=== PATIENT | male | born 1960 | race Caucasian/White ===

== ENCOUNTER 2019-11-05 18:31 | Inpatient (IN) | payer BC, SELFPAY ==
[~2019-11-05] VITALS: Ht 165.1 cm; Wt 87.3 kg
[2019-11-05] MEDS ORDERED: IV NORMAL SALINE 1000ML BAG 1,000 ML IV ONE ×2 (19:00→20:00)
[2019-11-05] MEDS ORDERED: UNABLE MC (19:18)
[2019-11-05 19:24] LABS: BASO # 0.1 x10^3/uL (0.0-0.2); BASO % 1 % (0-3); EOS # 0.2 x10^3/uL (0.0-0.7); EOS % 3 % (0-3); HEMATOCRIT 49.1 % (39.0-53.0); HEMOGLOBIN 16.6 g/dL (13.0-17.5); LYMPH # 2.1 x10^3/uL (1.0-4.8); LYMPH % 30 % (24-48); MEAN CORPUSCULAR HEMOGLOBIN 31 pg (25-35); MEAN CORPUSCULAR HGB CONC 34 g/dL (31-37); MEAN CORPUSCULAR VOLUME 93 fL (79-100); MONO # 0.7 x10^3/uL (0.0-1.1); MONO % 9 % (0-9); NEUT # 3.9 x10^3/uL (1.8-7.7); NEUT % 57 % (31-73); PLATELET COUNT 263 x10^3/uL (140-400); RED CELL DISTRIBUTION WIDTH 13.8 % (11.5-14.5); WHITE BLOOD COUNT 6.9 x10^3/uL (4.0-11.0)
[2019-11-05 19:36] LABS: CALCIUM 8.9 mg/dL (8.5-10.1); CREATININE 1.6 mg/dL (0.7-1.3); GFR 44.3; POTASSIUM 4.6 mmol/L (3.5-5.1)
[2019-11-05 19:38] LABS: ALBUMIN 3.2 g/dL (3.4-5.0); ALBUMIN/GLOBULIN RATIO 0.8 (1.0-1.7); TOTAL BILIRUBIN 0.7 mg/dL (0.2-1.0); TOTAL PROTEIN 7.3 g/dL (6.4-8.2)
[2019-11-05 19:49] LABS: BILIRUBIN,URINE NEGATIVE (NEG); CLARITY,URINE CLEAR; COLOR,URINE YELLOW; NITRITE,URINE NEGATIVE (NEG); PH,URINE 5.5 (<5.0-8.0); PROTEIN,URINE NEGATIVE (NEG-TRACE); UROBILINOGEN,URINE 0.2 mg/dL (0.2 mg/dL)
[2019-11-05 19:50] LABS: BASE EXCESS ABG -4 mmol/L (-3-3); HCO3 ABG 20 mmol/L (21-28); PCO2 ABG 37 mmHg (35-46); PO2 ABG 79 mmHg (65-108); SAT O2 ABG 95 % (92-99)
[2019-11-05 19:52] LABS: FIO2 ABG 21
--- NOTE | 2019-11-05 19:53 | PHYS DOC ---
Past Medical History Past Medical History: CAD, Diabetes-Type II, High Cholesterol Additional Past Medical Histor: "gangrene of left foot" Past Surgical History: Other Additional Past Surgical Histo: cabg Smoking Status: Current Every Day Smoker Alcohol Use: Occasionally General Adult EDM: Chief Complaint: BLOOD SUGAR PROBLEM HPI: HPI: Patient is a 58 year old with a past medical history of coronary artery disease status post CABG diabetes insulin-dependent hypertension hyperlipidemia presents with a chief complaint of blood sugar greater than 600. Patient states he has not taken his insulin for the last 2 days. Patient has associated increased thirst increased urination shortness of breath. He denies any chest pain. Patient recently moved from [place]. Review of Systems: Review of Systems: Constitutional: Denies fever or chills. [] Eyes: Denies change in visual acuity. [] HENT: Denies nasal congestion or sore throat. [] Respiratory: Denies cough positive shortness of breath. [] Cardiovascular: Denies chest pain or edema. [] GI: Denies abdominal pain, nausea, vomiting, bloody stools or diarrhea. [] : Denies dysuria. [Positive polyuria] Musculoskeletal: Denies back pain or joint pain. [] Integument: Denies rash. [] Neurologic: Denies headache, focal weakness or sensory changes. [] Lymphatic: Denies swollen glands. [] Psychiatric: Denies depression or anxiety. [] Heart Score: Risk Factors: Risk Factors: DM, Current or recent (<one month) smoker, HTN, HLP, family history of CAD, obesity. Risk Scores: Score 0 - 3: 2.5% MACE over next 6 weeks - Discharge Home Score 4 - 6: 20.3% MACE over next 6 weeks - Admit for Clinical Observation Score 7 - 10: 72.7% MACE over next 6 weeks - Early Invasive Strategies Current Medications: Current Medications Medications (Trade) Dose Ordered Sig/Kaity Start Time Stop Time Status Last Admin Dose Admin Sodium Chloride 1,000 ml @ 1,000 mls/hr 1X ONCE 11/05/19 19:00 11/05/19 19:59 11/05/19 19:33 1,000 MLS/HR Allergies: Allergies: Allergies Coded Allergies Type Severity Reaction Last Updated Verified No Known Drug Allergies 11/05/19 No Physical Exam: PE: Constitutional: Well developed, well nourished, no acute distress, non-toxic appearance. [] HENT: Normocephalic, atraumatic, bilateral external ears normal, oropharynx moist, no oral exudates, nose normal. [] Eyes: PERRLA, EOMI, conjunctiva normal, no discharge. [] Neck: Normal range of motion, no tenderness, supple, no stridor. [] Cardiovascular:Heart rate regular rhythm, no murmur [] Lungs & Thorax: Bilateral breath sounds clear to auscultation [] Abdomen: Bowel sounds normal, soft, no tenderness, no masses, no pulsatile masses. [] Skin: Warm, dry, no erythema, no rash. [] Back: No tenderness, no CVA tenderness. [] Extremities: No tenderness, no cyanosis, no clubbing, ROM intact, no edema. [] Neurologic: Alert and oriented X 3, normal motor function, normal sensory func tion, no focal deficits noted. [] Psychologic: Affect normal, judgement normal, mood normal. [] Current Patient Data: Labs: Laboratory Tests Test 11/05/19 19:14 White Blood Count 6.9 x10^3/uL (4.0-11.0) Red Blood Count 5.30 x10^6/uL (4.30-5.70) Hemoglobin 16.6 g/dL (13.0-17.5) Hematocrit 49.1 % (39.0-53.0) Mean Corpuscular Volume 93 fL (79-100) Mean Corpuscular Hemoglobin 31 pg (25-35) Mean Corpuscular Hemoglobin Concent 34 g/dL (31-37) Red Cell Distribution Width 13.8 % (11.5-14.5) Platelet Count 263 x10^3/uL (140-400) Neutrophils (%) (Auto) 57 % (31-73) Lymphocytes (%) (Auto) 30 % (24-48) Monocytes (%) (Auto) 9 % (0-9) Eosinophils (%) (Auto) 3 % (0-3) Basophils (%) (Auto) 1 % (0-3) Neutrophils # (Auto) 3.9 x10^3/uL (1.8-7.7) Lymphocytes # (Auto) 2.1 x10^3/uL (1.0-4.8) Monocytes # (Auto) 0.7 x10^3/uL (0.0-1.1) Eosinophils # (Auto) 0.2 x10^3/uL (0.0-0.7) Basophils # (Auto) 0.1 x10^3/uL (0.0-0.2) Laboratory Tests 11/05/19 19:14 Vital Signs: Vital Signs Date Time Temp Pulse Resp B/P (MAP) Pulse Ox O2 Delivery O2 Flow Rate FiO2 11/05/19 19:05 97.6 85 20 139/73 (95) 97 Room Air 97.6 EKG: EKG: [] Radiology/Procedures: Radiology/Procedures: [] Course & Med Decision Making: Course & Med Decision Making Pertinent Labs and Imaging studies reviewed. (See chart for details) [] Patient is glucose greater than 830. Treatment included normal saline x2 L. Insulin drip was initiated. Patient admitted to the hospitalist for further evaluation and treatment. Critical care time 35 minutes Related to reviewing patient's labs, patient care discussing with patient and family Audrey Disclaimer: Audrey Disclaimer: This electronic medical record was generated, in whole or in part, using a voice recognition dictation system. Departure Departure Impression: Primary Impression: DKA (diabetic ketoacidoses) Disposition: ADMITTED INPATIENT Admitting Physician: PARI Condition: STABLE Referrals: UNKNOWN PCP NAME (PCP) Justicifation of Admission Dx: Justifications for Admission: Justification of Admission Dx: Yes DKA: DKA ARGELIA ALDRICH DO Nov 05, 2019 19:53
[2019-11-05 19:55] LABS: SQUAMOUS EPITHELIAL CELL,UR FEW /LPF
[2019-11-05 19:56] LABS: RBC,URINE 0 /HPF (0-2); WBC,URINE RARE /HPF (0-4)
[2019-11-05 19:57] LABS: BACTERIA,URINE 0 /HPF (0-FEW); YEAST,URINE PRESENT /HPF
[2019-11-05] MEDS ORDERED: INSULIN,REGULAR 100 UNIT DRIP 100 ML IV ONE (20:00)
[2019-11-05 22:15] VITALS: BP 106/61
--- NOTE | 2019-11-05 22:15 | NUR ---
Pt admitted to room 111. Dr Hopkins called for orders. Pt educated on POC and oriented to room. See charting for assessment
[2019-11-05 23:00] VITALS: BP 119/68
[2019-11-05] MEDS ORDERED: ONDANSETRON PF 4 MG/2 ML VIAL. IVP PRN (23:00)
[2019-11-05] MEDS ORDERED: IV 1/2 NORMAL SALINE 1,000 ML IV SCH (23:00)
--- NOTE | 2019-11-05 23:11 | HP ---
ADMIT DATE: 11/05/2019 CHIEF COMPLAINT: Elevated glucose. HISTORY OF PRESENT ILLNESS: The patient is a pleasant middle-aged white male who presents with elevated glucose. His sugar is greater than 600. I discussed the case with ER physician. We are going to admit the patient with insulin drip and bring his glucose under control. PAST MEDICAL HISTORY: Noncompliance, diabetes, hypertension, hyperlipidemia, gangrenous left foot surgery, coronary artery bypass surgery, tobacco abuse. ALLERGIES: None. FAMILY HISTORY: Diabetes. SOCIAL HISTORY: He smokes. No drinking or drugs. MEDICATIONS: Reviewed, please refer to the MRAD. REVIEW OF SYSTEMS: GENERAL: No history of weight change, weakness or fevers. SKIN: No bruising, hair changes or rashes. EYES: No blurred, double or loss of vision. NOSE AND THROAT: No history of nosebleeds, hoarseness or sore throat. HEART: No history of palpitations, chest pain or shortness of breath on exertion. LUNGS: Denies cough, hemoptysis, wheezing or shortness of breath. GASTROINTESTINAL: Denies changes in appetite, nausea, vomiting, diarrhea or constipation. GENITOURINARY: No history of frequency, urgency, hesitancy or nocturia. NEUROLOGIC: Denies history of numbness, tingling, tremor or weakness. PSYCHIATRIC: No history of panic, anxiety or depression. ENDOCRINE: No history of heat or cold intolerance, polyuria or polydipsia. EXTREMITIES: Denies muscle weakness, joint pain, pain on walking or stiffness. PHYSICAL EXAMINATION: VITALS: Within normal limits and are stable. GENERAL: No apparent distress. Alert and oriented. HEENT: Normal cephalic atraumatic, external auditory canals are patent EYES: Extraocular muscles are intact, pupils are equally round and reactive to light and accommodation MUSCULOSKELETAL: Well developed, well nourished, good range of motion ENDOCRINE: No thyromegaly was palpated LYMPHATICS: No cervical chain or axillary nodes were noted HEMATOPOIETIC: No bruising NECK: Supple, no JVD, no thyromegaly was noted. LUNGS: Clear to auscultation in all lung tariq without rhonchi or wheezing. HEART: RRR, S1, S2 present. Peripheral pulses intact, no obvious murmurs were noted. ABDOMEN: Soft, nontender. Positive bowel sounds no organomegaly, normal bowel sounds. EXTREMITIES: Without any cyanosis, clubbing, or edema. Pedal pulses intact, Homans sign is negative. NEUROLOGIC: Normal speech, normal tone. A and O x3, moves all extremities, no obvious focal deficits. PSYCHIATRIC: Normal affect, normal mood. Stable. SKIN: No ulcerations or rashes, good skin turgor, no jaundice. VASCULAR: Good capillary refill, neurovascular bundle appears to be intact. ASSESSMENT AND PLAN: Diabetic ketoacidosis. The patient has been admitted. We will give insulin drip, DKA protocol, home meds, DVT prophylaxis. Full code. MACKENZIE VERDIN DO DR: ADY/anisha JOB#: [id number] / [id number]
[2019-11-05] MEDS: INSULIN GLARGINE SYRINGE. SQ SCH (23:38)
--- NOTE | 2019-11-05 23:45 | NUR ---
BS 64. Insulin gtt stopped at this time. 8 oz of OJ given. F/U BS [address] Hopkins for further orders. Received orders to DC insulin gtt and continue with Lantus 20 units tonight. Will continue to monitor BS throughout the night.
[2019-11-06] VITALS (11 sets, daily range): BP systolic 70–143; BP diastolic 31–84
[2019-11-06] MEDS ORDERED: IV DEXTROSE 5% 250 ML BAG. IV PRN (00:15)
[2019-11-06] MEDS ORDERED: DEXTROSE 50% 25 GM / 50ML DISP.SYRIN. IV PRN (00:15)
[2019-11-06] MEDS: IV NORMAL SALINE 1000ML BAG 1,000 ML IV SCH ×3 (00:57→20:40)
[2019-11-06] MEDS ORDERED: INSU100I13 SQ (01:53)
[2019-11-06] MEDS ORDERED: FAMO-63 PO (01:53)
[2019-11-06] MEDS ORDERED: APIX5TAB PO (01:53)
[2019-11-06] MEDS ORDERED: ASPI-630 PO (01:53)
[2019-11-06] MEDS ORDERED: CLOP75TA57 PO (01:53)
[2019-11-06] MEDS ORDERED: GABA300C18 PO (01:53)
[2019-11-06] MEDS ORDERED: LIPITOR80 MG PO (01:53)
[2019-11-06] MEDS ORDERED: BACL20TA PO (01:53)
[2019-11-06 03:36] LABS: ALBUMIN 2.7 g/dL (3.4-5.0); ALBUMIN/GLOBULIN RATIO 0.8 (1.0-1.7); CALCIUM 8.5 mg/dL (8.5-10.1); CHOLESTEROL/HDL RATIO 5.7; CREATININE 1.2 mg/dL (0.7-1.3); GFR 61.8; POTASSIUM 4.4 mmol/L (3.5-5.1); TOTAL BILIRUBIN 0.5 mg/dL (0.2-1.0); TOTAL PROTEIN 6.2 g/dL (6.4-8.2)
[2019-11-06] MEDS ORDERED: INSULIN LISPRO 300 UNITS/3 ML VIAL. SQ ONE (04:45)
[2019-11-06] MEDS: PANTOPRAZOLE 40 MG TABLET.DR. PO SCH (08:55)
[2019-11-06] MEDS: INSULIN LISPRO 300 UNITS/3 ML VIAL. SQ SCH ×3 (08:56→17:12)
[2019-11-06] MEDS ORDERED: ENOXAPARIN 30 MG/0.3 ML SYRINGE. SQ SCH (09:00)
--- NOTE | 2019-11-06 12:04 | PDOC ---
[facility] PROGRESS NOTE Chief Complaint Chief Complaint Resolving DKA Possible COVID-19 Noncompliance, diabetes, hypertension, hyperlipidemia, gangrenous left foot surgery, coronary artery bypass surgery, tobacco abuse. History of Present Illness History of Present Illness 11/06/2019 Patient seen and examined on the COVID-19 unit He is resting with no apparent distress Chart reviewed Discussed with RN Vitals/I&O Vitals/I&O: Vital Signs Date Time Temp Pulse Resp B/P (MAP) Pulse Ox O2 Delivery O2 Flow Rate FiO2 11/06/19 07:30 98.7 75 16 131/66 (87) 100 Room Air 98.7 I & O 11/05/19 11/05/19 11/06/19 15:00 23:00 07:00 Intake Total 1000 ml 240 ml Output Total 1700 ml Balance 1000 ml -1460 ml Physical Exam General: No acute distress Heart: Regular rate Lungs: Crackles Abdomen: Normal bowel sounds Extremities: No clubbing Skin: No rashes Labs Labs: Laboratory Tests Test 11/05/19 19:14 11/05/19 19:44 11/05/19 19:50 11/05/19 21:09 White Blood Count 6.9 x10^3/uL (4.0-11.0) Red Blood Count 5.30 x10^6/uL (4.30-5.70) Hemoglobin 16.6 g/dL (13.0-17.5) Hematocrit 49.1 % (39.0-53.0) Mean Corpuscular Volume 93 fL (79-100) Mean Corpuscular Hemoglobin 31 pg (25-35) Mean Corpuscular Hemoglobin Concent 34 g/dL (31-37) Red Cell Distribution Width 13.8 % (11.5-14.5) Platelet Count 263 x10^3/uL (140-400) Neutrophils (%) (Auto) 57 % (31-73) Lymphocytes (%) (Auto) 30 % (24-48) Monocytes (%) (Auto) 9 % (0-9) Eosinophils (%) (Auto) 3 % (0-3) Basophils (%) (Auto) 1 % (0-3) Neutrophils # (Auto) 3.9 x10^3/uL (1.8-7.7) Lymphocytes # (Auto) 2.1 x10^3/uL (1.0-4.8) Monocytes # (Auto) 0.7 x10^3/uL (0.0-1.1) Eosinophils # (Auto) 0.2 x10^3/uL (0.0-0.7) Basophils # (Auto) 0.1 x10^3/uL (0.0-0.2) Sodium Level 125 mmol/L (136-145) Potassium Level 4.6 mmol/L (3.5-5.1) Chloride Level 90 mmol/L (98-107) Carbon Dioxide Level 25 mmol/L (21-32) Anion Gap 10 (6-14) Blood Urea Nitrogen 23 mg/dL (8-26) Creatinine 1.6 mg/dL (0.7-1.3) Estimated GFR (Cockcroft-Gault) 44.3 BUN/Creatinine Ratio 14 (6-20) Glucose Level 831 mg/dL (70-99) Calcium Level 8.9 mg/dL (8.5-10.1) Total Bilirubin 0.7 mg/dL (0.2-1.0) Aspartate Amino Transf (AST/SGOT) 15 U/L (15-37) Alanine Aminotransferase (ALT/SGPT) 29 U/L (16-63) Alkaline Phosphatase 199 U/L (46-116) Total Protein 7.3 g/dL (6.4-8.2) Albumin 3.2 g/dL (3.4-5.0) Albumin/Globulin Ratio 0.8 (1.0-1.7) Urine Collection Type Unknown Urine Color Yellow Urine Clarity Clear Urine pH 5.5 (<5.0-8.0) Urine Specific Brea >=1.030 (1.000-1.030) Urine Protein Negative mg/dL (NEG-TRACE) Urine Glucose (UA) >=1000 mg/dL (NEG) Urine Ketones (Stick) Negative mg/dL (NEG) Urine Blood Negative (NEG) Urine Nitrite Negative (NEG) Urine Bilirubin Negative (NEG) Urine Urobilinogen Dipstick 0.2 mg/dL (0.2 mg/dL) Urine Leukocyte Esterase Negative (NEG) Urine RBC 0 /HPF (0-2) Urine WBC Rare /HPF (0-4) Urine Squamous Epithelial Cells Few /LPF Urine Bacteria 0 /HPF (0-FEW) Urine Mucus Slight /LPF Urine Yeast Present /HPF O2 Saturation 95 % (92-99) Arterial Blood pH 7.36 (7.35-7.45) Arterial Blood pCO2 at Patient Temp 37 mmHg (35-46) Arterial Blood pO2 at Patient Temp 79 mmHg (65-108) Arterial Blood HCO3 20 mmol/L (21-28) Arterial Blood Base Excess -4 mmol/L (-3-3) FiO2 21 Glucose (Fingerstick) 502 mg/dL (70-99) Test 11/05/19 22:19 11/05/19 23:41 11/05/19 23:47 11/05/19 23:52 Glucose (Fingerstick) 420 mg/dL (70-99) 64 mg/dL (70-99) 239 mg/dL (70-99) 126 mg/dL (70-99) Test 11/06/19 00:15 11/06/19 02:40 11/06/19 04:19 11/06/19 07:53 Glucose (Fingerstick) 114 mg/dL (70-99) 348 mg/dL (70-99) 293 mg/dL (70-99) Sodium Level 133 mmol/L (136-145) Potassium Level 4.4 mmol/L (3.5-5.1) Chloride Level 100 mmol/L (98-107) Carbon Dioxide Level 23 mmol/L (21-32) Anion Gap 10 (6-14) Blood Urea Nitrogen 22 mg/dL (8-26) Creatinine 1.2 mg/dL (0.7-1.3) Estimated GFR (Cockcroft-Gault) 61.8 BUN/Creatinine Ratio 18 (6-20) Glucose Level 363 mg/dL (70-99) Calcium Level 8.5 mg/dL (8.5-10.1) Total Bilirubin 0.5 mg/dL (0.2-1.0) Aspartate Amino Transf (AST/SGOT) 17 U/L (15-37) Alanine Aminotransferase (ALT/SGPT) 24 U/L (16-63) Alkaline Phosphatase 126 U/L (46-116) Total Protein 6.2 g/dL (6.4-8.2) Albumin 2.7 g/dL (3.4-5.0) Albumin/Globulin Ratio 0.8 (1.0-1.7) Triglycerides Level 145 mg/dL (0-150) Cholesterol Level 181 mg/dL (0-200) LDL Cholesterol, Calculated 120 mg/dL (0-100) VLDL Cholesterol, Calculated 29 mg/dL (0-40) Non-HDL Cholesterol Calculated 149 mg/dL (0-129) HDL Cholesterol 32 mg/dL (40-60) Cholesterol/HDL Ratio 5.7 Test 11/06/19 10:53 Glucose (Fingerstick) 313 mg/dL (70-99) Assessment and Plan Assessmemt and Plan Problems Medical Problems: (1) DKA (diabetic ketoacidoses) Status: Acute Resolving DKA Possible COVID-19 Noncompliance, diabetes, hypertension, hyperlipidemia, gangrenous left foot surgery, coronary artery bypass surgery, tobacco abuse. Plan Respiratory isolation until we can rule out Covid-19 Insulin Fluids Home meds DVT prophylaxis Full code Trend labs Long-term prognosis guarded Comment Review of Relevant I have reviewed the following items rachael (where applicable) has been applied. Medications: Current Medications Medications (Trade) Dose Ordered Sig/Kaity Route PRN Reason Start Time Stop Time Status Last Admin Dose Admin Sodium Chloride 1,000 ml @ 1,000 mls/hr 1X ONCE IV 11/05/19 19:00 11/05/19 19:59 DC 11/05/19 19:33 Sodium Chloride 1,000 ml @ 1,000 mls/hr 1X ONCE IV 11/05/19 20:00 11/05/19 20:59 DC 11/05/19 20:11 Insulin Human Regular 100 ml @ 0 mls/hr 1X ONCE IV 11/05/19 20:00 11/06/19 00:07 DC 11/05/19 20:11 Pantoprazole Sodium (Protonix) 40 mg DAILYAC PO 11/06/19 07:30 11/06/19 08:55 Enoxaparin Sodium (Lovenox 30mg Syringe) 30 mg Q24H SQ 11/06/19 09:00 11/06/19 08:54 Insulin Glargine (Lantus Syringe) 20 unit QHS SQ 11/05/19 23:00 11/05/19 23:38 Sodium Chloride 1,000 ml @ 100 mls/hr Q10H IV 11/06/19 00:15 11/06/19 10:43 Insulin Human Lispro (HumaLOG) 0-5 UNITS TIDWMEALS SQ 11/06/19 08:00 11/06/19 08:56 Insulin Human Lispro (HumaLOG) 5 units 1X ONCE SQ 11/06/19 04:45 11/06/19 04:46 DC 11/06/19 04:39 Justicifation of Admission Dx: Justifications for Admission: Justification of Admission Dx: Yes DKA: DKA MACKENZIE VERDIN III DO Nov 06, 2019 12:04
--- NOTE | 2019-11-06 15:42 | NUR ---
SW following. Reviewed chart and spoke with RN. SW consulted r/t pt's need for insurance and medication coverage. Spoke with pt who stated he recently moved from [place] and is living with his sister. Pt stated he has BCBS from [place] and is working on applying for Medicaid. Pt is being seen by [facility] for insurance needs. SW provided resources for prescription drug coverage. Pt on room air. Pt on oral medications. Pt is COVID pending. TIANA to continue following. Addendum: 11/07/19 at 1205 by EMA MONTIEL TIANA following. Discussed with RN, pt is COVID-19 negative. RN advised pt is discharging home, no SW needs.
[2019-11-06] MEDS: INSULIN GLARGINE SYRINGE. SQ SCH (20:42)
[2019-11-07 03:00] VITALS: BP 141/83
[2019-11-07 03:46] LABS: CALCIUM 8.2 mg/dL (8.5-10.1); CREATININE 1.1 mg/dL (0.7-1.3); GFR 68.3
[2019-11-07 04:09] LABS: HEMOGLOBIN A1C 15.2 % (4.8-5.6)
[2019-11-07 07:30] VITALS: BP 140/76
[2019-11-07] MEDS: PANTOPRAZOLE 40 MG TABLET.DR. PO SCH (07:48)
[2019-11-07] MEDS: IV NORMAL SALINE 1000ML BAG 1,000 ML IV SCH (07:48)
[2019-11-07] MEDS: INSULIN LISPRO 300 UNITS/3 ML VIAL. SQ SCH ×2 (08:05→11:31)
[2019-11-07] MEDS ORDERED: ENOXAPARIN 40 MG/0.4 ML SYRINGE. SQ SCH (09:00)
[2019-11-07 11:01] VITALS: BP 146/56
--- NOTE | 2019-11-07 12:04 | DS ---
DATE OF DISCHARGE: 11/07/2019 ADMISSION DIAGNOSIS: Diabetic ketoacidosis. DISCHARGE DIAGNOSIS: Resolving diabetic ketoacidosis. HOSPITAL COURSE: The patient is a pleasant 58-year-old male who presented with DKA. We also ruled him out for COVID-19. We gave him insulin drip and fluids. This morning, I saw and examined, he is back to his baseline. His gap is clear. We will plan to discharge to home. I left prescriptions for insulin. DISPOSITION: Home. ACTIVITY: As tolerated. DIET: Low sodium. MEDICATIONS: Please see the MRAD. TOTAL TIME: 33 minutes. NIAL Sharla VERDIN DO DR: ADY/anisha JOB#: [id number] / [id number]
--- NOTE | 2019-11-07 12:20 | NUR ---
Pt left unit at 1220 by ambulation via private vehicle with niece. Pt's IV removed, VSS. Discharge paperwork and medications discussed with pt. Additional questions addressed. Belongings sent with pt at time of discharge.
== END 2019-11-07 12:30 | disposition home or self-care (01) | DRG 639 ==
LOC: ER 18:31 → ED HOLD 19:59 → 1 WEST ICU 22:10 → 6 SOUTH 11-06 06:01
PROVIDERS: ADMIT Internal Medicine; ATTEND Internal Medicine
DX: E11.10 Type 2 diabetes mellitus with ketoacidosis without coma (principal); E78.00 Pure hypercholesterolemia, unspecified; E78.5 Hyperlipidemia, unspecified; F17.200 Nicotine dependence, unspecified, uncomplicated; I10 Essential (primary) hypertension; I25.10 Atherosclerotic heart disease of native coronary artery without angina pectoris; Z79.4 Long term (current) use of insulin; Z83.3 Family history of diabetes mellitus; Z91.19 Patient's noncompliance with other medical treatment and regimen; Z95.1 Presence of aortocoronary bypass graft; Z20.828 Contact with and (suspected) exposure to other viral communicable diseases
CPT/HCPCS: 36415; 36600; 80048; 80053; 80061; 81001; 82805; 82962; 83036; 85025; 96361; 96365; 99291; J1650; J1815; J7030; G0378; U0003-CS